=== PATIENT | male | born 1985 | race Caucasian/White ===

== ENCOUNTER → 2023-11-20 08:23 | Outpatient (BNVA) | payer SELFPAY | DX: J02.0 Streptococcal pharyngitis (principal) | CPT/HCPCS: 87880; 99212 ==

== ENCOUNTER → 2023-11-20 08:23 | Outpatient (AMB) | payer OTHER, SELFPAY ==
--- NOTE | 2023-11-20 09:01 | AM.OFFWIN_ITS ---
Intake Vital Signs 11/20/23 10:34 BP 130/74 Blood Pressure Location Rt brachial Position Sitting Pulse 79 Pulse Source Pulse Oximeter Temp 97.8 F Temp Source Oral Pulse Oximetry (%) 96 Oxygen Delivery Method Room Air Intake Visit Reasons: Sore throat Patient Tobacco Use Status: Never used Tobacco Allergies No Known Allergies Allergy (Verified 11/20/23 10:34) Medication List - Last Reconciled 11/20/23 by Halle Chung, [employer]- amoxicillin-pot clavulanate 875-125 mg 1 tab PO BID 7 days escitalopram oxalate (Lexapro) 10 mg PO DAILY Do you need a note to return to daycare/school/sports/work: No HPI HPI Comments History of Present Illness Details 38-year-old male 38-year-old male here t dung with chief complaints of a sore throat that started yesterday. He reports that he was in his normal state of health until yesterday when he developed a sore throat associated with painful swallowing. He was exposed to his son with strep throat. He has been taking Tylenol to help alleviate the pain. He denies any fever, chills, ear pain, runny nose, cough, chest pain. Exam: Awake alert NAD Sclera and conjunctiva clear bilat Nares patent, turbinates within normal limits, no sinus tenderness with palpation bilat TM intact and clear bilat MMM, pharynx diffuse erythema, worse on the left side, uvula midline, left AC adenopathy shotty RRR Plan: Good hand hygiene and respiratory etiquette can reduce the spread of all types of group A strep infection. Hand hygiene is especially important after coughing and sneezing and before preparing foods or eating. Good respiratory etiquette involves covering your cough or sneeze. Do not share food or drinks. Treating an infected person with an antibiotic for 12 hours or longer limits their ability to transmit the bacteria. Thus, people with group A strep pharyngitis should stay home from work, school, or daycare until: They are afebrile AND At least 12?24 hours after starting appropriate antibiotic therapy I also recommend changing toothbrush and washing bed linen in hot water 24 hours after starting antibiotics This note is constructed using voice recognition software. While every effort has been made to ensure accuracy in tattoo and body artist, still errors may have been included Sometimes, these errors may affect the content or meaning of the given sentence . PFSH Social History Patient Tobacco Use Status: Never used Tobacco Results AMB Rapid Strep AMB Rapid Strep Positive Last Edit by SHAHEEN Landry- on 4 10:38 Assessment & Plan Assessment & Plan (1) Strep pharyngitis: Code(s): J02.0 - Streptococcal pharyngitis Plan: . Orders: Orders AMB Rapid Strep Screen Today Z13.9 - Encounter for screening, unspecified Medications: New amoxicillin-pot clavulanate 875-125 mg 1 tab PO BID 7 days 14 tabs 0RF Coding Level of Care Code Est Pt Level 4 (96298) Diagnoses Strep pharyngitis J02.0
[2023-11-20 10:34] VITALS: BP 130/74; PULSE 79; TEMP 36.6; O2SAT 96
== END ==
PROVIDERS: Visit Provider Nurse Practitioner Family
DX: J02.0 Streptococcal pharyngitis (principal); Z13.9 Encounter for screening, unspecified